=== PATIENT | female | born 1970 | race Caucasian/White ===

== ENCOUNTER 2019-12-09 08:00 | Outpatient (CLI) | payer OTHER | END 2019-12-09 23:59 | disposition home or self-care (01) | LOC: LAB.R 08:00 | PROVIDERS: ATTEND Family Medicine | DX: B34.9 Viral infection, unspecified (principal); R05 Cough | CPT/HCPCS: 81599 ==

== ENCOUNTER 2020-02-14 02:51 | Emergency (ER) | payer OTHER ==
--- NOTE | 2020-02-14 03:04 | ED Physician Documentation ---
PD HPI LOWER EXT INJURY - Stated complaint Stated Complaint: ANKLE PX - Chief complaint Chief Complaint: Trauma Ext - History obtained from History obtained from: Patient - History of Present Illness PD HPI LOW EXT INJURY LOCATION: Left, Ankle Type of injury: Twist Where injury occurred: Home Timing - onset: How many weeks ago (1) Timing - details: Abrupt onset Improved by: Rest Worsened by: Moving, Palpating Associated symptoms: Swelling. No: Weakness, Numbness, Tingling, Discolored Recently seen: Not recently seen - Additional information Additional information: patient sustained left ankle injury when she slipped while walking in her house 1 week ago. pain is left ankle, medial aspect. pain has been gradually worsening over past several days. Review of Systems Musculoskeletal: reports: Joint pain, Joint swelling, Pain with weight bearing Neurologic: denies: Focal weakness, Numbness PD PAST MEDICAL HISTORY - Past Medical History Past Medical History: No - Present Medications Home Medications: Ambulatory Orders Medication Instructions Recorded Confirmed Lisinopril [Zestril] 5 mg PO DAILY 02/14/20 02/14/20 - Allergies Allergies/Adverse Reactions: Allergies Allergy/AdvReac Type Severity Reaction Status Date / Time codeine Allergy Anxiety Verified 02/14/20 03:04 morphine Allergy Unknown Verified 02/14/20 03:07 - Living Situation Living Situation: reports: With spouse/s.o. Living Arrangement: reports: At home PD ED PE NORMAL - Vitals Vital signs reviewed: Yes - General General: Alert and oriented X 3, No acute distress, Well developed/nourished - Derm Derm: Normal color - Extremities Extremities: No deformity PD ED PE EXPANDED - Extremities Extremities: Tenderness Feet visual: 1 - swelling (trace swelling), tenderness Results - Vitals Vitals: Vital Signs - 24 hr 02/14/20 02/14/20 03:00 04:23 Temperature 36.2 C L 36.6 C Heart Rate 94 82 Respiratory 16 20 Rate Blood Pressure 111/59 L 139/75 H O2 Saturation 97 96 Oxygen O2 Source Room air - Rads (name of study) left ankle xrays Radiology: Prelim report reviewed, See rad report PD MEDICAL DECISION MAKING - ED course Complexity details: reviewed results, re-evaluated patient, considered differential, d/w patient Departure - Departure Disposition: 01 Home, Self Care Clinical Impression: Closed avulsion fracture of ankle Condition: Good Instructions: ED Fx Ankle General, ED Crutch Walking Follow-Up: Dougie Huffman MD [Provider Admit Priv/Credential] - Within 1 week Discharge Date/Time: 02/14/20 04:27
--- NOTE | 2020-02-14 03:37 | XRAY Report ---
Reason: Twisted L ankle/c/o pain, swelling. Procedure Date: 02/14/2020 Accession Number: [id number] / [id number] Procedure: XR - Ankle 3 View LT CPT Code: Final Report FULL RESULT: EXAM: LEFT ANKLE RADIOGRAPHY EXAM DATE: 02/14/2020 03:08 AM. CLINICAL HISTORY: Twisted L ankle. One week ago. Pain, swelling. COMPARISON: None. TECHNIQUE: 3 views. FINDINGS: Bones: Tiny osseous fragments at tip of medial malleolus. No additional fractures. Joints: Normal. No effusion. No subluxations. The ankle mortise is normally aligned. Soft Tissues: Mild soft tissue swelling of medial ankle. IMPRESSION: Tiny osseous fragments at tip of medial malleolus suggesting avulsion injury with overlying soft tissue swelling. RADIA
[2020-02-14 04:23] VITALS: BP 139/75
== END 2020-02-14 04:27 | disposition home or self-care (01) ==
LOC: ED 02:51
DX: S82.52XA Displaced fracture of medial malleolus of left tibia, initial encounter for closed fracture (principal); X50.1XXA Overexertion from prolonged static or awkward postures, initial encounter; Y93.01 Activity, walking, marching and hiking; Y92.009 Unspecified place in unspecified non-institutional (private) residence as the place of occurrence of the external cause
CPT/HCPCS: 99283

== ENCOUNTER 2020-09-05 18:47 | Observation (INO) | payer OTHER ==
[2020-09-05] MEDS ORDERED: ASPIRIN CHEW 81 MG TABLET PO STA (19:11)
--- NOTE | 2020-09-05 19:15 | ED Physician Documentation ---
History of Present Illness - Stated complaint Stated Complaint: SOA, CP, FATIGUE - Chief complaint Chief Complaint: Cardiac - History obtained from History obtained from: Patient - Additonal information Additional information: 50-year-old female presents to the emergency department for evaluation of chest pain. This has been and intermittent problem for about the last week or 2. She describes chest pain that is sharp radiates to her shoulder. It will often last a few minutes. It is sometimes exacerbated by working out, but can occur with rest. She does have some nausea no vomiting. No cough. She does have a history of hypertension on lisinopril. Also heavy tobacco user 1/2 pack/day. Denies EtOH. Her dad had an ME in his mid 50s. She denies any hx of blood clots. Patient reports to me that she has been told she has had angina in the past. She did have a stress test at a hospital in [facility] in 2014 that was normal for age. Review of Systems Constitutional: reports: Reviewed and negative Eyes: reports: Reviewed and negative Ears: reports: Reviewed and negative Nose: reports: Reviewed and negative Throat: reports: Reviewed and negative Cardiac: reports: Chest pain / pressure. denies: Palpitations, Pedal edema, Calf pain Respiratory: reports: Dyspnea. denies: Cough, Hemoptysis, Wheezing GI: reports: Abdominal Pain : reports: Reviewed and negative Skin: reports: Rash Musculoskeletal: reports: Reviewed and negative Neurologic: reports: Reviewed and negative PD PAST MEDICAL HISTORY - Past Medical History Cardiovascular: Hypertension - Past Surgical History Past Surgical History: Yes General: Cholecystectomy - Present Medications Home Medications: Ambulatory Orders Medication Instructions Recorded Confirmed Lisinopril [Zestril] 5 mg PO DAILY 02/14/20 09/05/20 - Allergies Allergies/Adverse Reactions: Allergies Allergy/AdvReac Type Severity Reaction Status Date / Time codeine Allergy Anxiety Verified 09/05/20 19:04 morphine Allergy Unknown Verified 09/05/20 19:04 - Social History Does the pt smoke?: Yes Smoking Status: Current every day smoker Does the pt drink ETOH?: No Does the pt have substance abuse?: No - Immunizations Immunizations are current?: Yes - POLST Patient has POLST: No PD ED PE EXPANDED - General General: Alert, No acute distress, Well developed/nourished - Neck Neck: Supple w/out meningeal sx, No tenderness. No: Adenopathy - Cardiac Cardiac: Regular Rate, Radial strong equal, Pedal strong equal, Cap refill < 2 sec. No: Abnormal Rate, Murmur Present - Respiratory Respiratory: Clear to ausultation adán, Stridor. No: Distress, Labored - Abdomen Abdomen: Normal Bowel sounds. No: Tender to palpation - Back Back: Other (Some tenderness with palpation of the left anterior chest wall. No crepitus or erythema.) - Derm Derm: Normal color, Warm and dry. No: Rash - Extremities Extremities: Normal. No: Deformity, Pedal edema bilateral, Right calf TTP/cord, Left calf TTP/cord - Neuro Neuro: Alert and Oriented X 3, CNII-XII intact, Cerebellar nl, Normal gait, Normal finger nose - GCS Eye Opening: Spontaneous Motor: Obeys Commands Verbal: Oriented Total: 15 Results - Vitals Vitals: Vital Signs - 24 hr 09/05/20 09/05/20 09/05/20 18:50 19:24 19:44 Temperature 36.6 C 36.4 C L Heart Rate 100 99 91 Respiratory 20 17 21 Rate Blood Pressure 97/79 126/71 120/62 O2 Saturation 99 98 99 Oxygen O2 Source Room air - EKG (time done) 1853 Rate: Rate (enter#) (99) Rhythm: NSR Pacific: Normal QRS: LVH Ischemia: Normal ST segments Compare to prior EKG: Old EKG unavailable Computer interpretation: Agree with computer - Labs Labs: Laboratory Tests 09/05/20 09/05/20 09/05/20 19:06 19:06 19:06 WBC 12.0 H RBC 5.22 Hgb 14.5 Hct 45.1 MCV 86.4 MCH 27.8 MCHC 32.2 RDW 13.3 Plt Count 368 MPV 10.9 H Neut # (Auto) 7.2 H Lymph # (Auto) 3.5 Hooker # (Auto) 1.0 Eos # (Auto) 0.2 Baso # (Auto) 0.1 Absolute Nucleated RBC 0.00 Nucleated RBC % 0.0 D-Dimer < 200.0 L Sodium 136 Potassium 4.0 Chloride 100 L Carbon Dioxide 25 Anion Gap 11.0 BUN 17 Creatinine 0.7 Estimated GFR (MDRD) 89 Glucose 142 H Calcium 9.3 Total Bilirubin 0.6 AST 23 ALT 41 Alkaline Phosphatase 131 H Troponin I High Sens Total Protein 7.7 Albumin 4.1 Globulin 3.6 Albumin/Globulin Ratio 1.1 Lipase 27 Serum HCG, Qual 09/05/20 09/05/20 19:06 19:06 WBC RBC Hgb Hct MCV MCH MCHC RDW Plt Count MPV Neut # (Auto) Lymph # (Auto) Hooker # (Auto) Eos # (Auto) Baso # (Auto) Absolute Nucleated RBC Nucleated RBC % D-Dimer Sodium Potassium Chloride Carbon Dioxide Anion Gap BUN Creatinine Estimated GFR (MDRD) Glucose Calcium Total Bilirubin AST ALT Alkaline Phosphatase Troponin I High Sens 3.2 Total Protein Albumin Globulin Albumin/Globulin Ratio Lipase Serum HCG, Qual NEGATIVE - Rads (name of study) CXR Radiology: EMP read indepedently (Bilateral breast implants noted. No acute cardiopulmonary process) PD MEDICAL DECISION MAKING - ED course Complexity details: reviewed results, re-evaluated patient, considered differential, d/w patient ED course: 50-year-old female who has a history of high blood pressure and tobacco abuse presents to the emergency department for evaluation of intermittent chest pain for the last 2 weeks. Chest pain often occurs with activity but can also occur at rest. The story is worrisome for an anginal component. Today her EKG shows LVH but is nonischemic. High-sensitivity troponin is negative. Chest x-ray shows no acute focal abnormalities. Her heart score is 4 putting her at moderate risk of MACE. Patient is PERC negative. D-dimer nonelevated. Low suspicion for PE. Pt has been presented to Dr. Ryan for admission, risk stratification and likely echo/stress test in am. Departure - Departure Disposition: ED Place in Observation Clinical Impression: Chest pain Qualifiers: Chest pain type: unspecified Qualified Code(s): R07.9 - Chest pain, unspecified
[2020-09-05 19:19] LABS: BASOPHILS # (AUTO) 0.1 10^3/uL (0.0-0.1); BASOPHILS % (AUTO) 0.4 %; EOSINOPHILS # (AUTO) 0.2 10^3/uL (0.0-0.7); EOSINOPHILS % (AUTO) 1.3 %; HGB - HEMOGLOBIN 14.5 g/dL (12.0-16.0); LYMPHOCYTES # (AUTO) 3.5 10^3/uL (1.5-3.5); LYMPHOCYTES % (AUTO) 29.4 %; MEAN CORPUSCULAR HEMOGLOBIN 27.8 pg (27.0-31.0); MEAN CORPUSCULAR HGB CONC 32.2 g/dL (32.0-36.0); MEAN CORPUSCULAR VOLUME 86.4 fL (81.0-99.0); MEAN PLATELET VOLUME 10.9 fL (7.9-10.8); MONOCYTES % (AUTO) 8.4 %; NEUTROPHILS # (AUTO) 7.2 10^3/uL (1.5-6.6); NEUTROPHILS % (AUTO) 60.2 %; PLT - PLATELET COUNT 368 10^3/uL (130-450); RED BLOOD COUNT 5.22 10^6/uL (4.20-5.40); RED CELL DISTRIBUTION WIDTH 13.3 % (12.0-15.0)
[2020-09-05 19:33] LABS: ALBUMIN 4.1 g/dL (3.2-5.5); ALBUMIN/GLOBULIN RATIO 1.1 (1.0-2.2); BILIRUBIN,TOTAL 0.6 mg/dL (0.2-1.0); CALCIUM 9.3 mg/dL (8.5-10.3); CREATININE 0.7 mg/dL (0.4-1.0); TOTAL PROTEIN 7.7 g/dL (6.7-8.2)
[2020-09-05 19:45] LABS: HCG,QUALITATIVE BLOOD NEGATIVE
[2020-09-05] MEDS ORDERED: SODIUM CHLORIDE FLUSH 0.9% 10 ML SYRINGE IVP PRN (20:00)
--- NOTE | 2020-09-05 20:38 | HISTORY & PHYSICAL EXAMINATION ---
Chief Complaint - Chief Complaint Chief Complaint: Chest pain History of Present Illness - Admitted From Admitted From:: [facility] ED - History Obtained From Records Reviewed: Yes History obtained from: Patient - History of Present Illness HPI Comment/Other: Patient is a 50-year-old female with medical history significant for hypertension and tobacco use who presented to the ED with complaint of midsternal to left-sided chest pain with radiation to the left shoulder. She describes it as a sharp pain which has been going on intermittently over the past 2 weeks. However last night it was significantly worse and she woke up today tired and not feeling good throughout the day. At the time of occurrence yesterday she was dyspneic and unable to speak or move. She reported nausea but no vomiting. She denied abdominal pain, fever or chills. By the time of arrival to the ED her symptoms had resolved. She was given a full dose of aspir in in the ED. Work-up in the ED was unremarkable. Initial troponin was less than 3.2 and EKG was significant for LVH only. The patient recently started smoking again about 6 months ago after quitting for 4 years. Prior to this she smoked 1 pack/day for about 27 years. She underwent a stress test about 5 years ago which was normal. Her primary care physician is Dr. Narcisa Lewis DO at the [facility] in [facility]. In March 2020 the patient had a lipid panel done and her cholesterol was noted to be high. At the time it was agreed with a primary care physician that she would attempt diet control and exercise. However since then she injured her left ankle and has not been able to exercise and also started smoking. History - Past Medical History Cardiovascular: reports: Hypertension RN PROGRESSIVE CARE: reports: Uterine cancer Psych: reports: Depression, Anxiety MRSA Hx?: Yes - Past Surgical History General: reports: Cholecystectomy /RN PROGRESSIVE CARE: reports: Breast implants - Family & Social History Family History Comment/Other: Patient's father had an NH in his 50s. Patient's grandfather had CVA. There is extensive history of hypertension on the maternal side. Living arrangement: At home Living Situation: With spouse/s.o. Social History Notes: Patient lives at home with her . She recently moved to [facility] from [place]. She smokes about 1 pack/day. She recently started doing so about 6 months ago after quitting for 4 years. Prior to initially quitting she has been smoking at least 1 pack a day for 27 years. She occasionally drinks wine and denies any recreational substance use. - POLST Patient has POLST: No POLST Status: Full Code Meds/Allgy - Home Medications Home Medications: Ambulatory Orders Medication Instructions Recorded Confirmed Lisinopril [Zestril] 5 mg PO DAILY 02/14/20 09/05/20 - Allergies Allergies/Adverse Reactions: Allergies Allergy/AdvReac Type Severity Reaction Status Date / Time codeine Allergy Anxiety Verified 09/05/20 19:04 morphine Allergy Unknown Verified 09/05/20 19:04 Review of Systems - Constitutional Constitutional: denies: Fatigue, Fever, Chills, Weakness - Eyes Eyes: denies: Pain, Vision loss, Dipolpia - Ears, Nose & Throat Ears, Nose & Throat: denies: Ear pain, Sore throat - Cardiovascular Cariovascular: reports: Chest pain. denies: Irregular heart rate, Palpitations, Edema, Lightheadedness, Syncope, Exertional dyspnea - Respiratory Respiratory: denies: Cough, Sputum production, Wheezing, SOB at rest - Gastrointestinal Gastrointestinal: denies: Abdominal pain, Abdominal distention, Constipation, Diarrhea, Nausea, Vomiting, Reflux/heartburn - Genitourinary Genitourinary: denies: Dysuria, Frequency, Urgency, Hematuria - Musculoskeletal Musculoskeletal: denies: Muscle pain, Back pain, Muscle aches, Stiffness - Integumentary Integumentary: denies: Rash, Pruritis, Lesions - Neurological Neurological: denies: General weakness, Headache, Dizziness - Psychiatric Psychiatric: reports: Depression, Anxiety - Endocrine Endocrine: denies: Polyuria, Polydypsia - Hematologic/Lymphatic Hematologic/Lymphatic: denies: Anemia, Bruising, Petechiae Prior Level of Functionality: Patient is normally independent of activities of daily living Exam - Vital Signs Vital Signs: Vital Signs x48h Temp Pulse Resp BP Pulse Ox 09/05/20 19:44 36.4 C L 91 21 120/62 99 09/05/20 19:24 99 17 126/71 98 09/05/20 18:50 36.6 C 100 20 97/79 99 - Physical Exam General Appearance: positive: No acute distress, Alert Eyes Bilateral: positive: PERRL, EOMI ENT: positive: No signs of dehydration Neck: positive: No JVD, Trachea midline Respiratory: positive: Chest non-tender, No respiratory distress, Breath sounds nml. negative: Wheezes, Rales, Rhonchi Cardiovascular: positive: Regular rate & rhythm, No murmur. negative: No gallop, Irregularly irregular Abdomen: negative: Non-tender, No organomegaly, Nml bowel sounds, No distention, Guarding, Rebound Back: positive: Nml inspection Skin: positive: Color nml, No rash, Warm, Dry. negative: Diaphoresis, Pallor Extremities: positive: Non-tender, Full ROM, Nml appearance, No pedal edema Neurologic/Psychiatric: positive: Oriented x3, CN's nml (2-12), Motor nml, Sensation nml, Mood/affect nml Conclusion/Plan - Problem List (1) Chest pain Conclusion/Plan: Patient's initial troponin is negative. EKG is unremarkable except for left ventricular hypertrophy. Patient was given a full dose of aspirin in the ED. We will continue baby aspirin daily. Nitroglycerin sublingual ordered as needed for chest pain. We will trend troponin times tomorrow. If negative will proceed with nuclear stress test. Patient is on telemetry monitoring. Patient's chest pain had resolved by time of arrival to the ED. Patient had a heart score of 3 Qualifiers: Chest pain type: unspecified Qualified Code(s): R07.9 - Chest pain, unspecified (2) Hypertension Conclusion/Plan: Will resume patient's lisinopril once verified. - Lab Results Fish Bones: 09/06/20 05:26 09/06/20 05:26 Core Measures - Anticipated LOS I expect patient to be DC'd or transferred within 96 hours.: Yes - DVT/VTE - Prophylaxis VTE/DVT Device ordered at admit?: Yes VTE/DVT Prophylaxis med ordered at admit?: Yes
--- NOTE | 2020-09-05 20:51 | XRAY Report ---
PROCEDURE: Chest 1 View X-Ray INDICATIONS: Chest Pain TECHNIQUE: One view of the chest was acquired. COMPARISON: None FINDINGS: Surgical changes and devices: None. Lungs and pleura: No pleural effusions or pneumothorax. Lungs are clear. Mediastinum: Mediastinal contours appear normal. Heart size is normal. Bones and chest wall: No suspicious bony lesions. Overlying soft tissues appear unremarkable. IMPRESSION: No acute cardiopulmonary abnormality. Reviewed by: Nasir Rizvi on 09/05/2020 8:50 PM [facility] Approved by: Nasir Rizvi on 09/05/2020 8:50 PM [facility] Station ID: [id number]
[2020-09-05] MEDS ORDERED: NITROGLYCERIN SL 0.4 MG TABLET SL PRN (22:06)
[2020-09-05] MEDS: SODIUM CHLORIDE 0.9% 1,000 ML IV SCH (22:27)
[2020-09-05 23:50] LABS: C. PNEUMONIAE- RESP PCR PANEL NOT DETECTED
[2020-09-05] MEDS: SODIUM CHLORIDE FLUSH 0.9% 10 ML SYRINGE IVP SCH (23:57)
[2020-09-06 05:46] LABS: BASOPHILS # (AUTO) 0.1 10^3/uL (0.0-0.1); BASOPHILS % (AUTO) 0.6 %; EOSINOPHILS # (AUTO) 0.1 10^3/uL (0.0-0.7); EOSINOPHILS % (AUTO) 1.6 %; LYMPHOCYTES # (AUTO) 2.6 10^3/uL (1.5-3.5); LYMPHOCYTES % (AUTO) 30.9 %; MEAN CORPUSCULAR HEMOGLOBIN 28.5 pg (27.0-31.0); MEAN CORPUSCULAR HGB CONC 32.1 g/dL (32.0-36.0); MEAN CORPUSCULAR VOLUME 88.8 fL (81.0-99.0); MEAN PLATELET VOLUME 10.9 fL (7.9-10.8); MONOCYTES % (AUTO) 11.4 %; NEUTROPHILS # (AUTO) 4.6 10^3/uL (1.5-6.6); NEUTROPHILS % (AUTO) 55.1 %; PLT - PLATELET COUNT 311 10^3/uL (130-450); RED BLOOD COUNT 4.56 10^6/uL (4.20-5.40); RED CELL DISTRIBUTION WIDTH 13.4 % (12.0-15.0); WHITE BLOOD COUNT 8.3 x10^3/uL (4.8-10.8)
[2020-09-06 05:56] LABS: CALCIUM 8.8 mg/dL (8.5-10.3); CREATININE 0.6 mg/dL (0.4-1.0)
[2020-09-06] MEDS ORDERED: ASPIRIN EC 81 MG TABLET PO SCH (09:00)
[2020-09-06] MEDS ORDERED: ENOXAPARIN 40 MG/0.4 ML SYRINGE SUBQ SCH (09:00)
[2020-09-06] MEDS: SODIUM CHLORIDE FLUSH 0.9% 10 ML SYRINGE IVP SCH ×2 (09:33→16:48)
[2020-09-06] MEDS ORDERED: IOVERSOL 320 100 ML VIAL IVP ONE ×2 (09:48→13:54)
--- NOTE | 2020-09-06 10:48 | PROVIDER PROGRESS NOTE ---
Subjective - Prog Note Date Prog Note Date: 09/06/20 Prog Note Time: 10:30 - Subjective Pt reports feeling: Improved Subjective: Patient denies any current chest pain and did not experience any chest pain overnight. She said prior to her admission, her chest pain comes and goes usually with activity and sometimes at rest. She said she hasn't tried to ambulate too much because of the fear of having chest pain. She is able to walk to the bathroom without issues, though. She denies fever, chills, SOB, nausea/vomiting, abdominal pain. She reports having a mild headache likely due to lack of sleep and being in the hospital. Current Medications - Current Medications Current Medications: Active Medications Generic Name Dose Route Start Last Admin Trade Name Freq PRN Reason Stop Dose Admin Aspirin 81 mg 09/06/20 09:00 09/06/20 09:28 Aspirin Ec 81 Mg Tablet PO Not Given DAILY KURT Enoxaparin Sodium 40 mg 09/06/20 09:00 09/06/20 09:28 Enoxaparin 40 Mg/0.4 Ml Syringe SUBQ 40 mg DAILY KURT Administration Sodium Chloride 1,000 mls @ 75 mls/hr 09/05/20 20:00 09/05/20 23:10 Normal Saline 0.9% IV 75 mls/hr .[id number] KURT Infusion Nitroglycerin 0.4 mg 09/05/20 22:06 Nitroglycerin Sl 0.4 Mg Tablet SL Q5MIN PRN Chest Pain Sodium Chloride 10 ml 09/05/20 20:00 Sodium Chloride Flush 0.9% 10 Ml Syringe IVP PRN PRN NEEDED PER PROVIDER ORDERS Sodium Chloride 10 ml 09/06/20 01:00 09/06/20 09:33 Sodium Chloride Flush 0.9% 10 Ml Syringe IVP Not Given 0100,0900,1700 KURT Lisinopril [Zestril] 5 mg PO DAILY 02/14/20 Objective - Vital Signs/Intake & Output Reviewed Vital Signs: Yes Vital Signs: Vital Signs x48h Temp Pulse Resp BP Pulse Ox 09/06/20 08:00 36.7 C 87 16 126/69 96 09/06/20 04:55 36.8 C 97 17 128/88 H Intake & Output: Intake & Output 09/03/20 09/04/20 09/05/20 09/06/20 23:59 23:59 23:59 23:59 Intake Total 553.75 Balance 553.75 - Objective General Appearance: positive: No acute distress, Alert, Other (Appears stated age. She is overweight, but looks healthy otherwise. She is alert and conversing appropriately.) Eyes Bilateral: positive: Normal inspection, PERRL, EOMI, No lid inflammation, Conjunctivae nml, No scleral icterus ENT: positive: ENT inspection nml, Pharynx nml, No signs of dehydration. negative: Purulent nasal drainage, Pharyngeal erythema, Dry mucous membranes Neck: positive: Nml inspection, Thyroid nml, No JVD, Trachea midline. negative: Thyromegaly, Lymphadenopathy (R), Lymphadenopathy (L), Stiff neck, Carotid bruit, Swelling/bruising Respiratory: positive: Chest non-tender, No respiratory distress, Breath sounds nml, Other (Rate is regular and unlabored.). negative: Wheezes, Rales, Rhonchi Cardiovascular: positive: Regular rate & rhythm, No murmur, No gallop. negative: Irregularly irregular, Extrasystoles, Tachycardia, PMI displaced laterally, JVD present, Systolic murmur, Diastolic murmur, Gallop/S3, Gallop/S4, Friction rub Peripheral Pulses: 2+ Radial (R), 2+ Radial (L), 2+ Dorsalis pedis (R), 2+ Dorsalis pedis (L), 2+ Posterior tibialis (R), 2+ Posterior tibialis (L) Abdomen: positive: Non-tender, No organomegaly, Nml bowel sounds, No distention. negative: Tenderness, Guarding, Rebound Skin: positive: Color nml, No rash, Warm, Dry. negative: Cyanosis, Diaphoresis, Pallor Extremities: positive: Nml appearance, Pedal edema (trace edema in bilateral lower extremities. Patient said this is baseline for her since she has been more sedentary than usual.), Other (Patient injured her left ankle a few months ago and is unable to walk very far or exercise as usual. She is told by her PCP that she will need "rest" her ankle for a few months.) Neurologic/Psychiatric: positive: Oriented x3, Motor nml, Sensation nml, Mood/affect nml. negative: Sensory loss, Facial droop, Slurred/abnml speech, Depressed mood/affect - Lab Results Fish Bones: 09/06/20 05:26 09/06/20 05:26 Other Labs: Lab Results x24hrs 09/06/20 09/06/20 09/06/20 Range/Units 07:58 05:26 05:26 WBC 8.3 (4.8-10.8) x10^3/uL RBC 4.56 (4.20-5.40) 10^6/uL Hgb 13.0 (12.0-16.0) g/dL Hct 40.5 (37.0-47.0) % MCV 88.8 (81.0-99.0) fL MCH 28.5 (27.0-31.0) pg MCHC 32.1 (32.0-36.0) g/dL RDW 13.4 (12.0-15.0) % Plt Count 311 (130-450) 10^3/uL MPV 10.9 H (7.9-10.8) fL Neut # (Auto) 4.6 (1.5-6.6) 10^3/uL Lymph # (Auto) 2.6 (1.5-3.5) 10^3/uL [place] # (Auto) 1.0 (0.0-1.0) 10^3/uL Eos # (Auto) 0.1 (0.0-0.7) 10^3/uL Baso # (Auto) 0.1 (0.0-0.1) 10^3/uL Absolute Nucleated RBC 0.00 x10^3/uL Nucleated RBC % 0.0 /100WBC D-Dimer (200.0-255.0) ng/mL Sodium 140 (135-145) mmol/L Potassium 3.9 (3.5-5.0) mmol/L Chloride 107 (101-111) mmol/L Carbon Dioxide 24 (21-32) mmol/L Anion Gap 9.0 (6-13) BUN 16 (6-20) mg/dL Creatinine 0.6 (0.4-1.0) mg/dL Estimated GFR (MDRD) 106 (>89) Glucose 125 H (70-100) mg/dL Calcium 8.8 (8.5-10.3) mg/dL Total Bilirubin (0.2-1.0) mg/dL AST (10-42) IU/L ALT (10-60) IU/L Alkaline Phosphatase (42-121) IU/L Troponin I High Sens 3.0 (2.3-14.8) ng/L Total Protein (6.7-8.2) g/dL Albumin (3.2-5.5) g/dL Globulin (2.1-4.2) g/dL Albumin/Globulin Ratio (1.0-2.2) Lipase (22-51) U/L Serum HCG, Qual Nasal Adenovirus (PCR) Nasal B. parapertussis DNA (PCR) Nasal Coronavir 229E PCR Nasal Coronavir HKU1 PCR Nasal Coronavir NL63 PCR Nasal Coronavir OC43 PCR Nasal Enterovir/Rhinovir PCR Nasal Influenza B PCR Nasal Influenza A PCR Nasal Parainfluen 1 PCR Nasal Parainfluen 2 PCR Nasal Parainfluen 3 PCR Nasal Parainfluen 4 PCR Nasal RSV (PCR) Nasal B.pertussis DNA PCR Nasal C.pneumoniae (PCR) Damian Human Metapneumo PCR Nasal M.pneumoniae (PCR) Nasal SARS-CoV-2 (PCR) 09/06/20 09/05/20 09/05/20 Range/Units 00:58 22:20 19:06 WBC (4.8-10.8) x10^3/uL RBC (4.20-5.40) 10^6/uL Hgb (12.0-16.0) g/dL Hct (37.0-47.0) % MCV (81.0-99.0) fL MCH (27.0-31.0) pg MCHC (32.0-36.0) g/dL RDW (12.0-15.0) % Plt Count (130-450) 10^3/uL MPV (7.9-10.8) fL Neut # (Auto) (1.5-6.6) 10^3/uL Lymph # (Auto) (1.5-3.5) 10^3/uL [place] # (Auto) (0.0-1.0) 10^3/uL Eos # (Auto) (0.0-0.7) 10^3/uL Baso # (Auto) (0.0-0.1) 10^3/uL Absolute Nucleated RBC x10^3/uL Nucleated RBC % /100WBC D-Dimer (200.0-255.0) ng/mL Sodium (135-145) mmol/L Potassium (3.5-5.0) mmol/L Chloride (101-111) mmol/L Carbon Dioxide (21-32) mmol/L Anion Gap (6-13) BUN (6-20) mg/dL Creatinine (0.4-1.0) mg/dL Estimated GFR (MDRD) (>89) Glucose (70-100) mg/dL Calcium (8.5-10.3) mg/dL Total Bilirubin (0.2-1.0) mg/dL AST (10-42) IU/L ALT (10-60) IU/L Alkaline Phosphatase (42-121) IU/L Troponin I High Sens 3.9 (2.3-14.8) ng/L Total Protein (6.7-8.2) g/dL Albumin (3.2-5.5) g/dL Globulin (2.1-4.2) g/dL Albumin/Globulin Ratio (1.0-2.2) Lipase (22-51) U/L Serum HCG, Qual NEGATIVE Nasal Adenovirus (PCR) NOT DETECTED Nasal B. parapertussis DNA (PCR) NOT DETECTED Nasal Coronavir 229E PCR NOT DETECTED Nasal Coronavir HKU1 PCR NOT DETECTED Nasal Coronavir NL63 PCR NOT DETECTED Nasal Coronavir OC43 PCR NOT DETECTED Nasal Enterovir/Rhinovir PCR NOT DETECTED Nasal Influenza B PCR NOT DETECTED Nasal Influenza A PCR NOT DETECTED Nasal Parainfluen 1 PCR NOT DETECTED Nasal Parainfluen 2 PCR NOT DETECTED Nasal Parainfluen 3 PCR NOT DETECTED Nasal Parainfluen 4 PCR NOT DETECTED Nasal RSV (PCR) NOT DETECTED Nasal B.pertussis DNA PCR NOT DETECTED Nasal C.pneumoniae (PCR) NOT DETECTED Damian Human Metapneumo PCR NOT DETECTED Nasal M.pneumoniae (PCR) NOT DETECTED Nasal SARS-CoV-2 (PCR) NOT DETECTED 09/05/20 09/05/20 09/05/20 Range/Units 19:06 19:06 19:06 WBC (4.8-10.8) x10^3/uL RBC (4.20-5.40) 10^6/uL Hgb (12.0-16.0) g/dL Hct (37.0-47.0) % MCV (81.0-99.0) fL MCH (27.0-31.0) pg MCHC (32.0-36.0) g/dL RDW (12.0-15.0) % Plt Count (130-450) 10^3/uL MPV (7.9-10.8) fL Neut # (Auto) (1.5-6.6) 10^3/uL Lymph # (Auto) (1.5-3.5) 10^3/uL [place] # (Auto) (0.0-1.0) 10^3/uL Eos # (Auto) (0.0-0.7) 10^3/uL Baso # (Auto) (0.0-0.1) 10^3/uL Absolute Nucleated RBC x10^3/uL Nucleated RBC % /100WBC D-Dimer < 200.0 L (200.0-255.0) ng/mL Sodium 136 (135-145) mmol/L Potassium 4.0 (3.5-5.0) mmol/L Chloride 100 L (101-111) mmol/L Carbon Dioxide 25 (21-32) mmol/L Anion Gap 11.0 (6-13) BUN 17 (6-20) mg/dL Creatinine 0.7 (0.4-1.0) mg/dL Estimated GFR (MDRD) 89 (>89) Glucose 142 H (70-100) mg/dL Calcium 9.3 (8.5-10.3) mg/dL Total Bilirubin 0.6 (0.2-1.0) mg/dL AST 23 (10-42) IU/L ALT 41 (10-60) IU/L Alkaline Phosphatase 131 H (42-121) IU/L Troponin I High Sens 3.2 (2.3-14.8) ng/L Total Protein 7.7 (6.7-8.2) g/dL Albumin 4.1 (3.2-5.5) g/dL Globulin 3.6 (2.1-4.2) g/dL Albumin/Globulin Ratio 1.1 (1.0-2.2) Lipase 27 (22-51) U/L Serum HCG, Qual Nasal Adenovirus (PCR) Nasal B. parapertussis DNA (PCR) Nasal Coronavir 229E PCR Nasal Coronavir HKU1 PCR Nasal Coronavir NL63 PCR Nasal Coronavir OC43 PCR Nasal Enterovir/Rhinovir PCR Nasal Influenza B PCR Nasal Influenza A PCR Nasal Parainfluen 1 PCR Nasal Parainfluen 2 PCR Nasal Parainfluen 3 PCR Nasal Parainfluen 4 PCR Nasal RSV (PCR) Nasal B.pertussis DNA PCR Nasal C.pneumoniae (PCR) Damian Human Metapneumo PCR Nasal M.pneumoniae (PCR) Nasal SARS-CoV-2 (PCR) 09/05/20 Range/Units 19:06 WBC 12.0 H (4.8-10.8) x10^3/uL RBC 5.22 (4.20-5.40) 10^6/uL Hgb 14.5 (12.0-16.0) g/dL Hct 45.1 (37.0-47.0) % MCV 86.4 (81.0-99.0) fL MCH 27.8 (27.0-31.0) pg MCHC 32.2 (32.0-36.0) g/dL RDW 13.3 (12.0-15.0) % Plt Count 368 (130-450) 10^3/uL MPV 10.9 H (7.9-10.8) fL Neut # (Auto) 7.2 H (1.5-6.6) 10^3/uL Lymph # (Auto) 3.5 (1.5-3.5) 10^3/uL [place] # (Auto) 1.0 (0.0-1.0) 10^3/uL Eos # (Auto) 0.2 (0.0-0.7) 10^3/uL Baso # (Auto) 0.1 (0.0-0.1) 10^3/uL Absolute Nucleated RBC 0.00 x10^3/uL Nucleated RBC % 0.0 /100WBC D-Dimer (200.0-255.0) ng/mL Sodium (135-145) mmol/L Potassium (3.5-5.0) mmol/L Chloride (101-111) mmol/L Carbon Dioxide (21-32) mmol/L Anion Gap (6-13) BUN (6-20) mg/dL Creatinine (0.4-1.0) mg/dL Estimated GFR (MDRD) (>89) Glucose (70-100) mg/dL Calcium (8.5-10.3) mg/dL Total Bilirubin (0.2-1.0) mg/dL AST (10-42) IU/L ALT (10-60) IU/L Alkaline Phosphatase (42-121) IU/L Troponin I High Sens (2.3-14.8) ng/L Total Protein (6.7-8.2) g/dL Albumin (3.2-5.5) g/dL Globulin (2.1-4.2) g/dL Albumin/Globulin Ratio (1.0-2.2) Lipase (22-51) U/L Serum HCG, Qual Nasal Adenovirus (PCR) Nasal B. parapertussis DNA (PCR) Nasal Coronavir 229E PCR Nasal Coronavir HKU1 PCR Nasal Coronavir NL63 PCR Nasal Coronavir OC43 PCR Nasal Enterovir/Rhinovir PCR Nasal Influenza B PCR Nasal Influenza A PCR Nasal Parainfluen 1 PCR Nasal Parainfluen 2 PCR Nasal Parainfluen 3 PCR Nasal Parainfluen 4 PCR Nasal RSV (PCR) Nasal B.pertussis DNA PCR Nasal C.pneumoniae (PCR) Damian Human Metapneumo PCR Nasal M.pneumoniae (PCR) Nasal SARS-CoV-2 (PCR) - Diagnostic Imaging Diagnostic Imaging Results: positive: Final report reviewed ABX Reporting Has patient been on IV antibiotics over the past 48 hours?: No Assessment/Plan - Problem List (1) Chest pain Impression: Conclusion/Plan: Patient has not had any chest pain since the night of 09/04. Her repeat troponins are negative. Initial EKG was unremarkable except for left ventricular hypertrophy. Plan: A stress test is ordered to be done today. Though her d-dimer is less than 200, her smoking history and sedentary lifestyle puts her at risk for pulmonary embolism, a CTA is also ordered today. Patient will continue daily aspirin. Sublingual nitroglycerin ordered PRN for chest pain. If all diagnostics come back negative, patient can be discharged home and follow up with her PCP regarding her chest pain. She may need to a esophageal manometry to rule out esophageal spasm. (2) Hypertension Conclusion/Plan: Will continue PO lisinopril. Qualifiers: Chest pain type: unspecified Qualified Code(s): R07.9 - Chest pain, unspecified
--- NOTE | 2020-09-06 12:48 | CT Report ---
PROCEDURE: ANGIO CHEST W/WO INDICATIONS: severe sudden cp, obese, sedentary CONTRAST: IV CONTRAST: Optiray 320 ml: 80 PO CONTRAST: *NO PO CONTRAST TECHNIQUE: After the administration of intravenous contrast, 2 mm thick sections acquired from the pulmonary api iron to the posterior costophrenic angles. 3-dimensional maximum intensity projection (MIP) coronal a nd sagittal reformats were then acquired through the thorax. For radiation dose reduction, the follow ing was used: automated exposure control, adjustment of mA and/or kV according to patient size. COMPARISON: None FINDINGS: Image quality: Excellent. Pulmonary arteries: Pulmonary arteries are normal in size, and demonstrate no intraluminal filling d efects to suggest central pulmonary embolism. Peripheral pulmonary emboli cannot be excluded due to b olus timing. Lungs and pleura: Lungs are clear. No pleural effusions or pneumothorax. Central and peripheral ai rways are patent. Mediastinum: Heart size is normal, without pericardial effusion. No mediastinal or hilar adenopathy . Thoracic aorta is normal in caliber and enhancement. Esophagus is normal in caliber, without hiat al hernia. Bones and chest wall: No suspicious bony lesions. Ribs and thoracic spine appear intact throughout. There is leftward curvature of the upper thoracic spine. No axillary or supraclavicular adenopathy . Abdomen: Visualized upper abdominal solid organs appear normal in the early arterial phase of enhanc ement. IMPRESSION: 1. No aortic dissection or aneurysm. 2. No acute abnormality of the chest. Reviewed by: Nasir Rizvi on 09/06/2020 12:47 PM [facility] Approved by: Nasir Rizvi on 09/06/2020 12:47 PM PST Station ID: [id number]
[2020-09-06] MEDS ORDERED: AMINOPHYLLINE 500 MG/20 ML VIAL ONE (14:15)
[2020-09-06] MEDS ORDERED: REGADENOSON 0.4 MG/5 ML SYRINGE IVP ONE ×2 (14:15→15:48)
[2020-09-06] MEDS: SODIUM CHLORIDE 0.9% 1,000 ML IV SCH (14:47)
[2020-09-06] MEDS ORDERED: AMINOPHYLLINE 500 MG/20 ML VIAL IV ONE (15:00)
[2020-09-06] MEDS ORDERED: SODIUM CHLORIDE 0.9% IV ONE (15:48)
[2020-09-06] MEDS ORDERED: AMINOPHYLLINE IV ONE (15:48)
[2020-09-06 16:55] VITALS: BP 113/67
--- NOTE | 2020-09-06 16:56 | PHARMACY PROGRESS NOTE ---
- Best Possible Medication History Admit Date and Time: 09/05/201999 Processed by: Pharmacy Medication History completed: Yes Patient Interview: Completed Secondary Source(s): Physician records, Pharmacy records, Insurance records (PATIENT INTERVIEWED BY PHARMACY. PATIENT ABLE TO CONFIRM HOME MEDICATION. ONLY REPORTS SHE TAKES LISINOPRIL) As the person ultimately responsible for medication therapy, providers are able to order a medication from an existing home medication list in [facility] via the "Reconcile Routine" prior to Confirmation of that medication by network support manager. Such practice is discouraged except when the physician, in their clinical judgment, deems that a medical need exists for a medication without regard to previous use.
--- NOTE | 2020-09-06 17:35 | Nuclear Medicine Report ---
PROCEDURE: Rest and pharmacological stress myocardial perfusion SPECT with gated imaging and ejection fraction INDICATIONS: chest pain RADIOPHARMACEUTICAL: 9.0 mCi Tc-99m Myoview IV at rest and 35.8 mCi Tc-99m Myoview IV at peak exerci se. [id number] was performed. TECHNIQUE: Radiopharmaceutical was injected at peak stress test, and also at rest. SPECT images wer e obtained. SPECT myocardial perfusion images were displayed in short axis, horizontal long axis, an d vertical long axis views. Gated images were reviewed using AutoQUANT software. COMPARISON: None available. FINDINGS: Raw data: There is good myocardial labeling by radiotracer. No significant motion artifacts. Lung- to-heart ratio is 0.2 and (normal is less than 0.38 for tetrafosmin tracer). Left ventricle function: Gated images demonstrate normal left ventricle wall thickening. No segment al wall motion abnormality. No transient ischemic dilation; TID is 0.89 (normal less than 1.3). The left ventricle resting end-diastolic volume is normal. Left ventricle stress ejection fraction is > 70%; normal values are above 45%. Myocardial perfusion: There is normal distribution of activity in the left and right ventricular dash cardium. No fixed or reversible perfusion defects. IMPRESSION: 1. Normal myocardial perfusion images. No perfusion defect to suggest myocardial ischemia or infarct. 2. Normal left ventricular volume and systolic function. 3. Please correlate with stress EKG report. The result was discussed with Dr. Bertrand. PQRS ATTESTATIONS: Measure 322 - Is this imaging test primarily performed on a low-risk surgery patient for preoperative evaluation within 30 days preceding their low-risk non-cardiac surgery? Low-risk surgery is defined as cardiac or myocardial infarction less than 1%, including (but not limited to) endoscopic pr ocedures, superficial procedures, cataract surgery, and excisional breast surgery: Answer: No Measure 323 - Is this imaging test performed primarily for the monitoring of an asymptomatic patient who had percutaneous coronary intervention on the visit date or within 2 years of the visit date? An swer: No Measure 324 - Is this imaging test performed primarily for the initial detection and risk assessment on an asymptomatic, low coronary heart disease patient? Low CHD risk definition = clinicians should consider the maximum number of available patient factors used to estimate risk based on [place] (A TP III criteria), typically age, gender, diabetes, smoking status, and use of blood pressure medicati on, and integrate age appropriate estimates for missing elements, such as LDL or standard blood press ure. Answer: No Reviewed by: Marija Brown MD on 09/06/2020 5:34 PM PST Approved by: Marija Brown MD on 09/06/2020 5:34 PM PST Station ID: [id number]
--- NOTE | 2020-09-06 17:43 | Discharge Plan ---
Discharge Plan Problem Reviewed?: Yes Disposition: Home, Self Care Condition: Good Prescriptions: Atorvastatin [Lipitor] 10 mg PO DAILY #30 tablet Diet: Cardiac Activity Restrictions: Activity as Tolerated Shower Restrictions: No Driving Restrictions: No Instruction Topics: Cholesterol High Assess Risk, Atorvastatin tablets Health Concerns: You presented as chest pain. Your risk factors for having a heart attack are smoking, high cholesterol. We did blood test to make sure you were not having a heart attack. EKG was negative. You then had a nuclear medicine stress test and that was normal as well. Plan of Treatment: 1. Your cholesterol was reported as high as 290. You have been told to start cholesterol pills but you wanted to diet and exercise on your own first. It has been unsuccessful. And you started smoking to cope with stress of moving [place]. As such we are starting you on a cholesterol pill. We are calling into [facility] in [place]. It is called Lipitor/atorvastatin. 2. Please stop smoking. It increases your risk of heart attack, stroke, cancer, and blood clots in your legs tremendously. 3. Please see your primary care provider in follow-up. If you continue to have chest pain, there are other diseases they can give you chest pain such as a hiatal hernia, esophageal spasm. Please have your primary care provider refer you for gastroenterology work-up. Care Goals: To remain out of the hospital and to find out the reason you have chest pain Assessment: Patient understands care goal. Will follow through with her primary care provider in [place]. She is not sure that she will start a cholesterol pill but she will have a discussion with him and hot die picker the prescription at [facility]. No Smoking: If you smoke, Please STOP! Call for help. Follow-up with: SALEEM HUTTON DO [Primary Care Provider] -
--- NOTE | 2020-09-06 17:58 | CARDIAC PROCEDURE NOTE ---
Stress Test Report Service Date: 09/06/20 Service Time: 12:30 Ordering Provider: Supa Ryan MD Indication for Test: chest pain Significant Medical History: 50-year-old female with medical history significant for hypertension and tobacco use who presented to the ED with complaint of midsternal to left-sided chest pain with radiation to the left shoulder. She describes it as a sharp pain which has been going on intermittently over the past 2 weeks. However last night it was significantly worse and she woke up today tired and not feeling good throughout the day. At the time of occurrence yesterday she was dyspneic and unable to speak or move. She reported nausea but no vomiting. She denied abdominal pain, fever or chills. By the time of arrival to the ED her symptoms had resolved. She was given a full dose of aspirin in the ED. Work-up in the ED was unremarkable. Initial troponin was less than 3.2 and EKG was significant for LVH only. The patient recently started smoking again about 6 months ago after quitting for 4 years. Prior to this she smoked 1 pack/day for about 27 years. She underwent a stress test about 5 years ago which was normal. Her primary care physician is Dr. Narcisa Lewis DO at the [facility] in [facility]. In March 2020 the patient had a lipid panel done and her cholesterol was noted to be high. At the time it was agreed with a primary care physician that she would attempt diet control and exercise. However since then she injured her left ankle and has not been able to exercise and also started smoking. - Past Medical History Cardiovascular: reports: Hypertension DIRECTOR PART: reports: Uterine cancer Psych: reports: Depression, Anxiety EKG and troponins are normal. Cardiac Risk Factors: hypertension, hyperlipidemia, tobacco abuse Type of Stress Test: Pharmacologic Stress Test with MPI Pharmacologic Agent: Lexiscan Procedure: Pharmacologic stress testing was performed with Lexiscan. Patient had immediate response with flushing, nausea, and chest tightness where she felt short of breath. Heart rate at baseline was 81. Blood pressure at baseline was 120/76. With injection, heart rate was 111 which was 64% of maximum predicted heart rate. Maximum blood pressure 152/82. This was a normal mild hypertensive response. Symptoms are noted as above. Resting EKG had normal sinus rhythm, nonspecific ST-T wave changes in the inferolateral leads. There were no ST segment changes consistent with myocardial ischemia during stress. Myocardial perfusion imaging was done at rest following the injection of Myoview. At peak pharmacologic effect the patient was injected with further Myoview. Post stress imaging was also performed. Under separate report read by [facility] radiology, Dr. Brown, there was good myocardial labeling by radiotracer. No significant motion artifacts. Gated images demonstrated a normal left ventricle. No segmental wall abnormality. Left ventricular resting end- diastolic volume normal. Left ventricular stress ejection fraction was greater than 70%. There was a normal distribution of activity in the left and right ventricle myocardium. No fixed or reversible perfusion defects were noted. This was considered a normal myocardial perfusion image. Patient is considered low risk for coronary artery disease. Summary: Patient has atypical chest pain. At this point cardiac evaluation is negative. We have recommended that she follow-up with her primary care provider to follow- up on work-up of chest pain. This might include gastrology referral for EGD, esophageal manometry, DeMeester score. If cardiac, GI, and pulmonary work-up are all negative without any musculoskeletal cause, consider anxiety.The patient has been asked to stop smoking. To start Lipitor.
== END 2020-09-06 19:00 | disposition home or self-care (01) ==
LOC: ED 18:47 → MS3 20:00
PROVIDERS: ADMIT Internal Medicine; ATTEND Specialist
DX: R07.89 Other chest pain (principal); I10 Essential (primary) hypertension; F17.210 Nicotine dependence, cigarettes, uncomplicated; E78.00 Pure hypercholesterolemia, unspecified; Z82.49 Family history of ischemic heart disease and other diseases of the circulatory system; Z79.899 Other long term (current) drug therapy
CPT/HCPCS: 0202U; 36415; 71045; 71275; 78452; 80048; 80053; 83690; 84484; 84703; 85025; 85379; 93005; 93017; 96372; 96374; 99284; 99285; A9270; A9500; G0378; J1650; J2785; Q9967

== ENCOUNTER 2023-10-16 06:41 | Outpatient (CLI) | payer MEDICAID, OTHER | END 2023-10-16 23:59 | disposition critical access hospital (66) | LOC: EMS 06:41 | DX: S80.11XA Contusion of right lower leg, initial encounter (principal); V47.5XXA Car driver injured in collision with fixed or stationary object in traffic accident, initial encounter; Y92.414 Local residential or business street as the place of occurrence of the external cause | CPT/HCPCS: A0425; A0429; A0999 ==